=== PATIENT | male | born 1975 | race Caucasian/White ===

== ENCOUNTER 2018-05-19 18:56 | Emergency (ER) | payer MEDICAID ==
[~2018-05-19] VITALS: Ht 177.8 cm; Wt 91.0 kg
[2018-05-19 21:29] LABS: CHLORIDE 109 mEq/L (98-107)
[2018-05-19 21:33] LABS: ETHANOL BLOOD < 10 mg/dL
[2018-05-19 21:34] LABS: EOSINOPHILS % 3.8 % (0.0-5.0); HEMATOCRIT. 37.2 % (42.0-52.0); HEMOGLOBIN. 12.4 g/dL (14.0-18.0); LYMPHOCYTES % 37.5 % (20.0-50.0); MEAN CORPUSCULAR HEMOGLOBIN 29.4 pg (28.0-32.0); MEAN CORPUSCULAR VOLUME 88.7 fL (80.0-94.0); MEAN PLATELET VOLUME 7.5 fl (7.4-10.4); MONOCYTES % 9.1 % (2.0-8.0); NEUTROPHILS % 48.6 % (40.0-76.0); PLATELET 328 x1000/uL (130-400); RED CELL DISTRIBUTION WIDTH 13.9 % (11.6-14.6)
[2018-05-19 22:47] LABS: CLARITY URINE CLEAR (CLEAR); COLOR URINE YELLOW (YELLOW); KETONES URINE NEGATIVE (NEGATIVE); LEUKOCYTE ESTERASE URINE NEGATIVE (NEGATIVE); NITRITE URINE NEGATIVE (NEGATIVE); OCCULT BLOOD URINE NEGATIVE (NEGATIVE); PROTEIN URINE NEGATIVE (NEGATIVE); SPECIFIC GRAVITY URINE 1.014 (1.005-1.030); UROBILINOGEN URINE 0.2 E.U./dL (0.2-1.0)
[2018-05-19 23:00] LABS: *AMPHETAMINES SCREEN URINE NEGATIVE (NEGATIVE); *BARBITURATES SCREEN URINE NEGATIVE (NEGATIVE); *BENZODIAZEPINES SCREEN URINE NEGATIVE (NEGATIVE); *COCAINE SCREEN URINE NEGATIVE (NEGATIVE); METHADONE URINE SCREEN NEGATIVE (NEGATIVE); OPIATES URINE SCREEN NEGATIVE (NEGATIVE)
[2018-05-19 23:01] LABS: CANNABINOID URINE SCREEN NEGATIVE (NEGATIVE); PHENCYCLIDINE URINE SCREEN NEGATIVE (NEGATIVE)
[2018-05-21 08:46] VITALS: BP 135/74
== END 2018-05-21 08:51 | disposition home or self-care (01) ==
LOC: ER 18:56
DX: M79.604 Pain in right leg (principal); M79.605 Pain in left leg; M79.89 Other specified soft tissue disorders; F31.9 Bipolar disorder, unspecified
CPT/HCPCS: 36415; 80053; 80305; 81003; 82962; 85025; 99283; G0482

== ENCOUNTER 2020-12-04 13:49 | Emergency (ER) | payer MEDICAID ==
[~2020-12-04] VITALS: Ht 177.8 cm; Wt 86.0 kg
[2020-12-04 14:05] VITALS: BP 146/102
[2020-12-04] MEDS ORDERED: RISPERDAL (14:18)
[2020-12-04] MEDS ORDERED: METFORMIN (14:18)
[2020-12-04] MEDS ORDERED: LITHIUM (14:18)
[2020-12-04] MEDS ORDERED: ENALAPRIL (14:18)
[2020-12-04 15:36] LABS: BASOPHILS % 2.1 % (0.0-2.0); EOSINOPHILS % 1.7 % (0.0-5.0); HEMATOCRIT. 38.6 % (42.0-52.0); LYMPHOCYTES % 28.8 % (20.0-50.0); MEAN CORPUSCULAR HEMOGLOBIN 29.4 pg (28.0-32.0); MEAN CORPUSCULAR VOLUME 87.3 fL (80.0-94.0); MONOCYTES % 5.9 % (2.0-8.0); NEUTROPHILS % 61.5 % (40.0-76.0); PLATELET 342 x1000/uL (130-400); RED BLOOD CELL COUNT 4.42 mill/uL (4.7-6.1); RED CELL DISTRIBUTION WIDTH 14.6 % (11.6-14.6)
[2020-12-04 15:43] LABS: CHLORIDE 110 mEq/L (98-107)
[2020-12-04 15:50] LABS: ETHANOL BLOOD < 10 mg/dL
[2020-12-04 16:05] LABS: CLARITY URINE CLEAR (CLEAR); COLOR URINE YELLOW (YELLOW); KETONES URINE NEGATIVE (NEGATIVE); LEUKOCYTE ESTERASE URINE NEGATIVE (NEGATIVE); NITRITE URINE NEGATIVE (NEGATIVE); OCCULT BLOOD URINE NEGATIVE (NEGATIVE); PROTEIN URINE NEGATIVE (NEGATIVE); SPECIFIC GRAVITY URINE 1.013 (1.005-1.030); UROBILINOGEN URINE 0.2 E.U./dL (0.2-1.0)
[2020-12-04 16:21] LABS: PHENCYCLIDINE URINE SCREEN NEGATIVE (NEGATIVE)
[2020-12-04 16:22] LABS: *AMPHETAMINES SCREEN URINE NEGATIVE (NEGATIVE); *BARBITURATES SCREEN URINE NEGATIVE (NEGATIVE); *BENZODIAZEPINES SCREEN URINE NEGATIVE (NEGATIVE); *COCAINE SCREEN URINE NEGATIVE (NEGATIVE); CANNABINOID URINE SCREEN NEGATIVE (NEGATIVE); METHADONE URINE SCREEN NEGATIVE (NEGATIVE)
[2020-12-04 16:23] LABS: OPIATES URINE SCREEN NEGATIVE (NEGATIVE)
== END 2020-12-04 17:35 | disposition left against medical advice (07) ==
LOC: ER 13:49
DX: F91.9 Conduct disorder, unspecified (principal); E11.65 Type 2 diabetes mellitus with hyperglycemia; I10 Essential (primary) hypertension; D64.9 Anemia, unspecified; F31.9 Bipolar disorder, unspecified; Z79.4 Long term (current) use of insulin
CPT/HCPCS: 36415; 80053; 80305; 80307; 80320; 80329; 81003; 85025; 99283; G0480

== ENCOUNTER 2020-12-06 04:37 | Emergency (ER) | payer MEDICAID ==
[~2020-12-06] VITALS: Ht 177.8 cm; Wt 76.0 kg
[~2020-12-06 04:37] MED LIST: ENALAPRIL; LITHIUM; METFORMIN; RISPERDAL
[2020-12-06] MEDS ORDERED: ACET-2708 MT (05:07)
[2020-12-06] MEDS ORDERED: NAPR-1176 MT (05:07)
[2020-12-06] MEDS ORDERED: IBUPROFEN 400MG TABLET PO ONE (05:15)
[2020-12-06] MEDS ORDERED: ACETAMINOPHEN 325MG TABLET PO ONE (05:15)
[2020-12-06 05:33] VITALS: BP 136/86
== END 2020-12-06 06:30 | disposition home or self-care (01) ==
LOC: ER 04:37 → EDUNIT# 04:37 → ER 06:30
DX: M79.672 Pain in left foot (principal); M79.671 Pain in right foot; I10 Essential (primary) hypertension
CPT/HCPCS: 99283

== ENCOUNTER 2024-11-24 19:34 | Emergency (ER) | payer MEDICAID ==
[~2024-11-24] VITALS: Ht 175.3 cm; Wt 70.0 kg
[~2024-11-24 19:34] MED LIST changes: +ACET-2708 MT; +FURO-152 MT; +NAPR-1176 MT
[2024-11-24 19:38] VITALS: O2SAT 99
[2024-11-24] MEDS ORDERED: METF-1150 MT (19:40)
[2024-11-24] MEDS ORDERED: LITHTAB MT (20:14)
[2024-11-24 20:27] VITALS: BP 127/72; PULSE 74; RESP 16; TEMP 37.1; O2SAT 99
== END 2024-11-24 20:36 | disposition home or self-care (01) ==
LOC: ER 19:34
DX: F31.9 Bipolar disorder, unspecified (principal); I10 Essential (primary) hypertension; E11.9 Type 2 diabetes mellitus without complications; Z76.0 Encounter for issue of repeat prescription; Z79.1 Long term (current) use of non-steroidal anti-inflammatories (NSAID); Z79.84 Long term (current) use of oral hypoglycemic drugs; Z79.899 Other long term (current) drug therapy
CPT/HCPCS: 99283